=== PATIENT | female | born 1980 | race African-American/Black ===

== ENCOUNTER 2018-07-13 13:45 | Emergency (ER) | payer SELFPAY ==
[~2018-07-13] VITALS: Ht 182.9 cm; Wt 79.4 kg
[2018-07-13] MEDS ORDERED: traMADol HCL 50 MG TAB PO ONE (14:15)
[2018-07-13 15:27] VITALS: BP 105/62
== END 2018-07-13 15:53 | disposition home or self-care (01) ==
LOC: ER 13:45 → EDBD 13:45 → ER 15:53
DX: S16.1XXA Strain of muscle, fascia and tendon at neck level, initial encounter (principal); S00.83XA Contusion of other part of head, initial encounter; V43.52XA Car driver injured in collision with other type car in traffic accident, initial encounter; Y93.89 Activity, other specified; Y99.8 Other external cause status; Y92.410 Unspecified street and highway as the place of occurrence of the external cause
CPT/HCPCS: 70450; 70486; 72125